=== PATIENT | male | born 1995 | race Caucasian/White ===

== ENCOUNTER 2021-04-14 02:58 | Emergency (ER) | payer BC, MEDICAID ==
[2021-04-14] MEDS ORDERED: Amidate 20 MG/10 ML IV ONE (02:59)
[2021-04-14] MEDS ORDERED: Sodium Chloride 0.9% 1000 ML 1,000 ML IV STA (03:19)
[2021-04-14] MEDS ORDERED: Hydromorphone 1 mg/ml Injection IV ONE (03:20)
[2021-04-14] MEDS ORDERED: Sodium Chloride 0.9% 1000 ML 1,000 ML ONE (03:29)
[2021-04-14] MEDS ORDERED: Hydromorphone 1 mg/ml Injection ONE (03:29)
--- NOTE | 2021-04-14 03:35 | ERPHSYRPT ---
- History of Present Illness Time Seen by Provider: 04/14/21 03:15 Patient Subjective Stated Complaint: Patient states " I fell down a loft in a garage and landed on my left foot/ankle. It was about a 10-12 foot drop onto concrete and I cannot bear any weight on left foot and the pain has become unbearable." Triage Nursing Assessment: . Physician History: Patient is a 26-year-old male who fell approximately 10 to 12 feet from a loft in the garage landing on his left ankle causing an injury. He is unable to bear weight and the pain is unbearable. Method of Injury: fell Occurred: just prior to arrival Quality: stabbing, throbbing Severity of Pain-Max: severe Severity of Pain-Current: severe Lower Extremities Pain: ankle: left (Deformity at the distal left leg at the ankle just above the ankle) Modifying Factors: Improves With: movement Associated Symptoms: unable to bear weight Allergies/Adverse Reactions: No Known Drug Allergies Allergy (Unverified 04/14/21 03:09) Travel Risk - International Travel Have you traveled outside of the country in past 3 weeks: No - Coronavirus Screening Are you exhibiting any of the following symptoms?: No Close contact with a COVID-19 positive Pt in past 14-21 Days: No - Vaccine Status Have you recieved a Covid-19 vaccination: No - Review of Systems Constitutional: No Fever, No Chills Eyes: No Symptoms Ears, Nose, & Throat: No Symptoms Respiratory: No Cough, No Dyspnea Cardiac: No Chest Pain, No Edema, No Syncope Abdominal/Gastrointestinal: No Abdominal Pain, No Nausea, No Vomiting, No Diarrhea Genitourinary Symptoms: No Dysuria Musculoskeletal: No Back Pain, No Neck Pain Skin: No Rash Neurological: No Dizziness, No Focal Weakness, No Sensory Changes Psychological: No Symptoms Endocrine: No Symptoms All Other Systems: Reviewed and Negative - Past Medical History Pertinent Past Medical History: No Neurological History: No Pertinent History ENT History: No Pertinent History Cardiac History: No Pertinent History Respiratory History: No Pertinent History Endocrine Medical History: No Pertinent History Musculoskeletal History: No Pertinent History GI Medical History: No Pertinent History History: No Pertinent History Psycho-Social History: No Pertinent History Male Reproductive Disorders: No Pertinent History - Past Surgical History Past Surgical History: No Neuro Surgical History: No Pertinent History Cardiac: No Pertinent History Respiratory: No Pertinent History Gastrointestinal: No Pertinent History Genitourinary: No Pertinent History Musculoskeletal: No Pertinent History Male Surgical History: No Pertinent History - Social History Smoking Status: Current every day smoker How long have you smoked: 5 years Exposure to second hand smoke: Yes Drug Use: marijuana Patient Lives Alone: Yes - Nursing Vital Signs Nursing Vital Signs: Initial Vital Signs Temperature 98.5 F 04/14/21 03:10 Pulse Rate 114 H 04/14/21 03:10 Respiratory Rate 18 04/14/21 03:10 Blood Pressure 140/93 04/14/21 03:10 O2 Sat by Pulse Oximetry 98 04/14/21 03:10 Pain Scale Pain Intensity 8 - Physical Exam General Appearance: moderate distress, alert Eyes, Ears, Nose, Throat Exam: moist mucous membranes Neck Exam: non-tender, supple Cardiovascular/Respiratory Exam: chest non-tender, normal breath sounds, regular rate/rhythm, no respiratory distress Gastrointestinal/Abdominal Exam: non-tender, guarding Back Exam: normal inspection, No vertebral tenderness Ankle Exam: left ankle: bone tenderness, deformity, limited range of motion, pain, soft tissue tenderness, swelling Neuro/Tendon Exam: normal sensation, normal motor functions Mental Status Exam: alert, oriented x 3, cooperative Skin Exam: normal color, warm, dry SpO2 Interpretation: normal SpO2: 98 O2 Delivery: Room Air Procedures - Splinting Time of Procedure: 03:50 Location of Splint: Left, Ankle Type of Splint: Orthoglass Short Leg Splint Splint Applied By: ED Physician Pre-Proc Neuro Vasc Exam: normal Post-Proc Neuro Vasc Exam: neurovascular intact - Procedural Sedation Indication: fracture reduction Preparation: consent signed, capnographry, constant attendance, cardiac catheterization technician, pulse oximeter Sedation Parenteral: Etomidate Response during procedure: light sedation Post-Procedure Response: return to baseline mental status, vital signs stable - Course Nursing assessment & vital signs reviewed: Yes - Radiology Exams Left Ankle X-ray Interpretation: Interpreted by me, Displaced Fracture (Fracture dislocation of the left ankle reduced post reduction films show good alignment) Ordered Tests: Active Orders 24 hr Category Date Time Status ANKLE (3 VIEWS) Stat Exams 04/14/21 03:21 Ordered ANKLE (3 VIEWS) Stat Exams 04/14/21 04:05 Ordered Medication Summary Generic Name Dose Route Start Last Admin Trade Name Freq PRN Reason Stop Dose Admin Sodium Chloride 1,000 mls @ 999 mls/hr 06/26/21 03:19 04/14/21 03:46 Sodium Chloride 0.9% 1000 Ml IV 04/14/21 04:19 999 mls/hr .Q1H1M STA Administration Discontinued Medications Generic Name Dose Route Start Last Admin Trade Name Freq PRN Reason Stop Dose Admin Hydromorphone HCl 1 mg 04/14/21 03:20 04/14/21 03:46 Hydromorphone 1 Mg/Ml Injection IV 04/14/21 03:21 1 mg STAT ONE Administration Hydromorphone HCl Confirm 04/14/21 03:29 Hydromorphone 1 Mg/Ml Injection Administered 04/14/21 03:30 Dose 1 mg .ROUTE .STK-MED ONE Sodium Chloride Confirm 04/14/21 03:29 Sodium Chloride 0.9% 1000 Ml Administered 04/14/21 03:30 Dose 1,000 mls @ ud .ROUTE .STK-MED ONE - Progress Progress: improved - Departure Departure Disposition: Home Clinical Impression: Fracture dislocation of left ankle Condition: Stable Critical Care Time: No Referrals: RIVKA LOPEZ [Primary Care Provider] - Instructions: Ankle Fracture (DC) Prescriptions: Oxycodone HCl/Acetaminophen [Percocet 5-325 mg Tablet] 1 each PO Q6H PRN PRN #12 tablet MDD 4 PRN Reason: Pain
[2021-04-14] MEDS ORDERED: PERCOCET TABLET 5/325MG PO ONE (04:16)
[2021-04-14] MEDS ORDERED: PERCOCET TABLET 5/325MG ONE (04:42)
[2021-04-14 05:13] VITALS: O2SAT 100
[2021-04-14 06:18] VITALS: BP 132/74; PULSE 76
--- NOTE | 2021-04-14 07:47 | XRAY ---
Indication: Pain following fall. Comparison: None AP/lateral left ankle demonstrates comminuted angulated fracture distal fibula, posterior talus dislocation, depressed posterior malleolus fracture, and soft tissue swelling. No other bony, articular, or soft tissue abnormalities.
--- NOTE | 2021-04-14 07:51 | XRAY ---
Indication: Post reduction. Comparison: Taken earlier in the day. AP/lateral left ankle demonstrates new overlying splint material, successful reduction talus dislocation, trimalleolar fracture with distal fibula fracture improved apposition/alignment, and soft tissue swelling.
== END 2021-04-14 06:15 | disposition home or self-care (01) ==
LOC: ED 02:58
DX: S82.892A Other fracture of left lower leg, initial encounter for closed fracture (principal); W17.89XA Other fall from one level to another, initial encounter
CPT/HCPCS: 29515; 73600; 96360; 96374; 99284; J1170; A9270-GY

== ENCOUNTER 2021-04-27 07:25 | Day surgery (SDC) | payer MEDICAID ==
[2021-04-27] MEDS ORDERED: Lactated Ringers 1,000 ML IV ONE (07:43)
[2021-04-27] MEDS ORDERED: KEFZOL 1 GM/50 ML PREMIX** 1 GM/50 ML IVPB IV ONE (07:43)
[2021-04-27] MEDS ORDERED: Lactated Ringers 1,000 ML IV SCH (08:00)
[2021-04-27] MEDS ORDERED: KEFZOL 1 GM/50 ML PREMIX** 1 GM/50 ML IVPB IV SCH (08:00)
[2021-04-27] MEDS ORDERED: Versed 2 MG/2 ML Injection IV ONE (08:12)
[2021-04-27] MEDS ORDERED: SUBLIMAZE 100 MCG/2 ML ONE ×4 (12:04→17:13)
[2021-04-27] MEDS ORDERED: Versed 2 MG/2 ML Injection ONE (12:04)
[2021-04-27] MEDS ORDERED: DIPRIVAN 200 MG/20 ML IV ONE (12:06)
[2021-04-27] MEDS ORDERED: Zemuron 100 MG/10 ML ONE (12:06)
[2021-04-27] MEDS ORDERED: Decadron 4 MG INJ ONE ×2 (12:07→12:08)
[2021-04-27] MEDS ORDERED: Zofran 4 MG/2 ML VIAL ONE (12:08)
[2021-04-27] MEDS ORDERED: TORAdol 30 mg Injection ONE (12:08)
[2021-04-27] MEDS ORDERED: BRIDION 200MG/2ML IV ONE (12:09)
[2021-04-27] MEDS ORDERED: Hydromorphone 1 mg/ml Injection ONE (17:09)
[2021-04-27 17:41] LABS: Appearance CLEAR (CLEAR); Bilirubin NEGATIVE (NEGATIVE); Blood NEGATIVE Ery/ul (0-5); Glucose NEGATIVE (NEGATIVE); Ketones NEGATIVE (NEGATIVE); Leukocyte Esterase NEGATIVE (NEGATIVE); Nitrite NEGATIVE (NEGATIVE); Protein,Urine Dip NEGATIVE (Negative); Specific Gravity 1.009 (1.005-1.025); Urobilinogen NEGATIVE mg/dL (0-1)
[2021-04-27 19:31] VITALS: O2SAT 97
[2021-04-27 19:36] VITALS: BP 150/82; PULSE 86
--- NOTE | 2021-04-27 21:35 | XRAY ---
Indication: ORIF trimalleolar fracture. Intraoperative fluoroscopy provided for 7 minute 8 seconds. Single digital lateral view of the ankle demonstrates multiple fixation plates/screws presumed fixating trimalleolar fracture. Correlate with intraoperative findings/report.
--- NOTE | 2021-04-27 21:53 | XRAY ---
7 minutes and 8 seconds fluoroscopy time in surgery for ORIF left trimalleolar fracture.
--- NOTE | 2021-04-30 10:01 | OP ---
SURGERY DATE/TIME: 04/27/2021 1252 PREOPERATIVE DIAGNOSIS: Trimalleolar fracture of the left ankle. POSTOPERATIVE DIAGNOSIS: Trimalleolar fracture of the left ankle. PROCEDURE: Open reduction internal fixation of trimalleolar fracture. SURGEON: Marcus Nicholson DPM. SENIOR PAINTER: None. ANESTHESIA: General plus popliteal block. See anesthesia notes for details. HEMOSTASIS: Thigh tourniquet set to 350 mm of Mercury for 120 minutes, taken down for 15 minutes and then for a subsequent 51 minutes. ESTIMATED BLOOD LOSS: 100 cc. MATERIALS: Brii distal lateral fibular plate six-hole left. Interfragmentary 3.5 x 16 and 2.7 x 18 anterior to posterior malleolar fixation screw 3.5 x 42 both threaded cannulated. Medial malleolar reduction with a four-hole one-fourth tubular plate with a 2.7 x 50 and 2.7 x 30. INJECTABLES: See anesthesia notes for details. INDICATION FOR SURGERY: The patient is a very pleasant 26 year-old male who was first seen on 04/16/2021 following a fall off of a garage loft and landing on his left foot and ankle approximately 13 feet in the air onto concrete. The patient presented to the emergency department on 04/14/2021 and stated that he was unable to bear any weight to his left foot. X-rays were taken demonstrating a trimalleolar fracture of the left ankle. The patient presented to the walk-in clinic two days following the injury and was scheduled for surgical intervention. The patient was extremely swollen at that time and soft tissues were not prepared for surgical intervention therefore delayed the surgery until today. The patient understands all risks, benefits and complications of surgical intervention including but not limited possible nonbone healing, delayed bone healing, delayed wound healing, delayed skin healing, possible post-traumatic osteoarthritis as well as need for surgical intervention in the future for possible hardware removal. The patient understands all of this and wishes to proceed with surgical intervention. DESCRIPTION OF PROCEDURE AND FINDINGS: The patient was brought into the postoperative anesthesia care unit and a popliteal block was performed to the left lower extremity as indicated in the patient's chart. See anesthesia notes for details. Following this the patient was brought into the OR and placed on the OR table in the supine position. A well-padded thigh tourniquet was placed on the patients left thigh and general anesthesia administered at that time. The left lower extremity was prepped and draped in typical sterile fashion. At this time attention is directed to the left ankle, the fibula where a skin marker was utilized to delineate out landmarks of the fibular fracture as well as the incision site. At this time an Esmarch was utilized to exsanguinate the left leg and the tourniquet was turned on to 350 mm of Mercury. Attention is then directed to the lateral aspect of the fibula where a 15 blade was utilized to make an incision at the posterior border of the fibula at the area of the fracture line. A combination of blunt and sharp dissection was utilized being careful not to damage the sural or the superficial peroneal nerve in this area. Dissection was made down to the level of the bone and the fracture site was identified with copious amounts of hemorrhage identified in the fracture site. Copious amounts of sterile saline were used to lavage the fracture site and a dental pick was utilized in order to remove any of the non-vitalized, devitalized and nonviable bone fragment and soft tissue interposing the bone fragment. At this time gentle distraction of the leg was applied in order to bring the fibula out to length. A lobster-claw point of reduction clamp was utilized to distract and re-approximate the two fracture fragments. Once adequate reduction was made and the fracture line was no longer viewable on radiographs, fluoroscopy was utilized to identify this. A 3.5 x 16 mm interfragmentary screw was utilized in lag technique to re-approximate the fracture fragment. Once this occurred a 2.7 x 18 mm screw was utilized to perform the same just distal to this aspect. At this time anatomical Brii distal lateral fibular plate six-hole left lower extremity was applied to the left lower extremity and checked under fluoroscopy and deemed to be adequate in position and in size for the patients fracture. At this time a combination of locking and nonlocking screws were utilized to secure the plate to the posterior lateral aspect of the fibula. At this time this was checked under fluoroscopy dime sign was assessed as well as Shentons line on the mortise views and deemed to be adequate in fibular length as compared to contralateral extremity which was checked under fluoroscopy as well. At this time attention was then directed to the posterior malleolar fragment. At this time a threaded reduction clamp was introduced posteriorly onto the posterior malleolar fracture and checked with fluoroscopic guidance. At this time a 15 blade was used to make a stab incision, sharp and blunt dissection was made at the anterior aspect of the ankle in order to introduce and enter the posterior screw. After drilling and measuring of the screw, the screw was deemed to be adequate at 3.5 x 42 mm fully threaded this was checked on lateral x-ray and deemed to be adequate with no significant step-off of the articular surface. At this time attention was then directed to the medial aspect of the ankle where an incision was made just posterior to the anterior colliculus avoiding any injury to the saphenous nerve, saphenous vein or tibialis anterior in this area. A four-hole one-fourth tubular plate was utilized and bent into a position where it could act as a tension band-type plating system. The medial malleolar screw was introduced first measuring 2.7 x 50 mm and then the proximal screw was held under tension and placed as 2.7 x 30 mm. Following this all incision sites were flushed with copious amounts of sterile saline. A 2-0 Vicryl utilized to coapt the skin edges and skin lara were utilized to coapt the skin edges in an everted-type fashion. The patient's leg was then cleansed with sterile saline and dried. Betadine was applied to the incision site and covered with Adaptic, 4x4 and Kerlix. At this time a well-padded posterior splint with sugar-tong was applied to the left lower extremity and secured with 4 inch and a 6 inch base. At this time the patient was reversed from anesthesia. The tourniquet was let down twice throughout the procedure at 120 minutes and then subsequently after 15 minutes waiting time 51 minutes for the remainder of the procedure. The patient handled the tourniquet, anesthesia and procedure without complication and was returned to the postoperative anesthesia care unit with vital signs stable and vascular status intact. All patient's orders are as indicated in the patient's postoperative discharge notes.
== END 2021-04-27 19:25 | disposition home or self-care (01) ==
LOC: SDC 07:25
PROVIDERS: ATTEND Podiatrist Foot & Ankle Surgery
DX: S82.852A Displaced trimalleolar fracture of left lower leg, initial encounter for closed fracture (principal)
CPT/HCPCS: 64450; 73600; 76000; 76937; 76942; 81001; 87086; J0690; J1100; J1170; J1885; J2250; J2405; J2704; J3010